=== PATIENT | male | born 1985 | race Caucasian/White ===

== ENCOUNTER 2025-02-21 09:05 | Emergency (ER) | payer SELFPAY ==
[~2025-02-21] VITALS: Ht 170.2 cm; Wt 83.9 kg
[2025-02-21 09:59] LABS: IMMATURE GRANULOCYTE ABSOLUTE 0.05 K/uL (0-1); NUCLEATED RED BLOOD CELLS 0.0 % (0.0-0.19); PLATELET COUNT (AUTO) 379 K/uL (130-400); RED BLOOD CELL COUNT(AUTO) 4.68 MIL/uL (4.50-6.20); RED CELL DISTRIBUTION WIDTH 12.8 % (11.0-15.5); WHITE BLOOD COUNT (AUTO) 11.8 K/uL (4.8-10.8)
--- NOTE | 2025-02-21 10:01 | EKG ---
[facility] Test Date: 2025-02-21 Test Time: 09:57:03 Pat Name: ERIC SANCHEZ Department: ED Room: Gender: [employer] Labou[employer]: [id number] : 1985 Requested By: SARAH ROSENTHAL Order Number: [id number] Reading MD: Janelle Carbajal Measurements Intervals [place] Rate: 70 P: 34 OR: 155 QRS: 23 QRSD: 90 T: 31 QT: 366 QTc: 397 Interpretive Statements Sinus rhythm No previous ECG available for comparison Electronically Signed On 02-21-2025 11:38:28 CDT by Janelle Carbajal Please click the below link to view image of tracing.
[2025-02-21 10:07] LABS: CREATININE 1.1 mg/dL (0.5-1.3); GLOMERULAR FILTR. RATE CALC 86.0 mL/min (>90); GLUCOSE,RANDOM 102.0 mg/dL (70-105); SODIUM SERUM 139.0 mmol/L (136-145); UREA NITROGEN, BLOOD 15.0 mg/dL (7-18)
[2025-02-21 10:09] LABS: INR 0.99 (0.85-1.15)
--- NOTE | 2025-02-21 11:02 | HMCIMG ---
US ARTERIAL BILAT LOW EXT DUPL HISTORY: LLE pain TECHNIQUE: Duplex Doppler evaluation of the arteries of both legs performed. FINDINGS: Grayscale images revealed intimal calcifications throughout both lower extremities. Peak systolic velocities and wave patterns were documented, as follows: RIGHT LEG Common femoral: 147 cm/s Triphasic Superficial femoral prox: 129 cm/s Triphasic Superficial femoral mid: 119 cm/s Triphasic Superficial femoral distal: 86 cm/s Triphasic Popliteal: 68 cm/s biphasic Posterior tibial: 66 cm/s biphasic Dorsalis pedis: 43 cm/s biphasic LEFT LEG Common femoral: 144 cm/s Triphasic Superficial femoral prox: 118 cm/s Triphasic Superficial femoral mid: 109 cm/s Triphasic Superficial femoral distal: 78 cm/s biphasic Popliteal: 53 cm/s biphasic Posterior tibial: 60 cm/s biphasic Dorsalis pedis: 99 cm/s biphasic IMPRESSION: Normal bilateral lower extremity arterial Doppler.
[2025-02-21 11:09] VITALS: BP 137/88; PULSE 80; RESP 20; TEMP 98; O2SAT 99
[2025-02-21] MEDS ORDERED: NAPR-1196 PO (11:50)
--- NOTE | 2025-02-21 11:50 | ERN ---
ED Note History of Present Illness Stated Complaint: LT FOOT PAIN Chief Complaint: FOOT INJURY/PAIN Time Seen by MD: 09:32 Dictation: 40-year-old male with left foot pain over the past week worsening this morning was [facility] and sent for further evaluation patient reports that he feels the foot cold and also sprained it a few days ago. Patient also rubbed icy hot medicine on it Allergies: Coded Allergies: No Known Allergies (Unverified Allergy, Unknown, 02/21/25) Past Medical History Past Medical History: Asthma Surgical History: Other Review of System Dictation Constitutional: Negative for fever,chills, and weight loss Eyes: Negative for injury, pain,redness, and discharge ENT: Negative for injury,pain or swelling Cardiovascular: Negative for chest pain, palpitations, and edema Respiratory: Negative for shortness of breath, cough, and wheezing, Abdomen/GI: Negative for abdominal pain, nausea, vomiting, diarrhea, and constipation Back: Negative for injury and pain : Negative for injury, bleeding and discharge MS/Extremity: Per HPI Skin: Negative for rash, and discoloration Neuro: Negative for headache, weakness, numbness, tingling, and seizure Psych: Negative for suicide ideation, homicidal ideation, and hallucinations Initial Vital Sign VS Vital Signs Date Time Temp Pulse Resp B/P (MAP) Pulse Ox O2 Delivery O2 Flow Rate FiO2 02/21/25 09:08 98.1 84 20 148/98 99 Room Air 02/21/25 11:09 0 21 Physical Exam Dictation General: awake, alert, NAD Head/Face: Normocephalic, atraumatic Eyes: PERRL, EOMI, vision at baseline ENT: oral cavity clear, TMs clear, no signs of infection Neck: Trachea midline, supple, no nuchal rigidity Cardiovascular: RRR, normal S1/S2, No MRGs, no JVD Respiratory: CTAB, no respiratory distress, No rales or wheezes Abdomen: Soft, non-tender, non-distended, normal bowel sounds, no guarding or rebound. Skin: Warm, dry, normal turgor, no rash MS/Extremity: Pulses equal, no cyanosis, neurovascular intact, FROM, mild ten derness to left ankle no deformity Neuro: COAx4, GCS 15, strength 5/5, CN 2-12 intact, normal cerebellar exam, normal gait, Psych: Normal behavior, mood, and affect normal Results (Laboratory/Radiology) Laboratory/Radiology Laboratory Tests Test 02/21/25 09:53 White Blood Count 11.8 K/uL (4.8-10.8) H Red Blood Count 4.68 MIL/uL (4.50-6.20) Hemoglobin 14.5 g/dL (14.0-18.0) Hematocrit 42.6 % (42-54) Mean Corpuscular Volume 91.0 fL (79-99) Mean Corpuscular Hemoglobin 31.0 pg (27.0-33.0) Mean Corpuscular Hemoglobin Concent 34.0 g/dL (32.0-36.0) Red Cell Distribution Width 12.8 % (11.0-15.5) Platelet Count 379 K/uL (130-400) Mean Platelet Volume 9.2 fL (7.5-10.5) Immature Granulocyte % (Auto) 0.4 % (0-1) Neutrophils (%) (Auto) 65.1 % (40.0-77.0) Lymphocytes (%) (Auto) 26.9 % (21.0-51.0) Monocytes (%) (Auto) 5.7 % (3.0-13.0) Eosinophils (%) (Auto) 1.5 % (0.0-8.0) Basophils (%) (Auto) 0.4 % (0.0-5.0) Neutrophils # (Auto) 7.7 K/uL (1.8-7.7) Lymphocytes # (Auto) 3.2 K/uL (1.0-4.8) Monocytes # (Auto) 0.7 K/uL (0.1-1.0) Eosinophils # (Auto) 0.18 K/uL (0.00-0.70) Basophils # (Auto) 0.05 K/uL (0.00-0.20) Absolute Immature Granulocyte (auto 0.05 K/uL (0-1) Nucleated Red Blood Cells 0.0 % (0.0-0.19) Prothrombin Time 10.5 SEC (9.6-11.6) Prothromb Time International Ratio 0.99 (0.85-1.15) Activated Partial Thromboplast Time 23.2 SEC (26.3-35.5) L Sodium Level 139 mmol/L (136-145) Potassium Level 3.9 mmol/L (3.5-5.1) Chloride Level 101 mmol/L (101-111) Carbon Dioxide Level 29 mmol/L (21-32) Blood Urea Nitrogen 15 mg/dL (7-18) Creatinine 1.1 mg/dL (0.5-1.3) Glomerular Filtration Rate Calc 86 mL/min (>90) Random Glucose 102 mg/dL (70-105) Total Calcium 8.9 mg/dL (8.5-10.1) Troponin I High Sensitivity < 4 ng/L (4-75) L Labs Reviewed?: Yes ED Course ED Course Orders Procedure Category Date Status Time Us Arterial Bilat Low US 02/21/25 Resulted Ext Dupl 09:44 12 Lead Ekg Tracing- EKG 02/21/25 Resulted Technical 09:44 Cbc With Differential LAB 02/21/25 Complete 09:44 Basic Metabolic Panel LAB 02/21/25 Complete 09:44 Pt And Ptt LAB 02/21/25 Complete 09:44 Troponin I High LAB 02/21/25 Complete Sensitivity 09:44 Ankle Comp 3vws Lt RAD 02/21/25 Taken 10:59 Ketorolac PHA 02/21/25 Complete Tromethamine 30mg/Ml 11:00 Current Medications Medications (Trade) Dose Ordered Sig/Bert Route PRN Reason Start Time Stop Time Status Last Admin Dose Admin Ketorolac Tromethamine (toRADol) 30 mg ONCE ONCE IM 02/21/25 11:00 02/21/25 11:01 DC 02/21/25 11:20 Vital Signs Date Time Temp Pulse Resp B/P (MAP) Pulse Ox O2 Delivery O2 Flow Rate FiO2 02/21/25 11:09 98.1 80 20 137/88 99 Room Air* 0 21 02/21/25 09:08 98.1 84 20 148/98 99 Room Air Medical Decision Making MDM MDM: Differential diagnosis: Rationale: Tests considered and ordered secondary to shared decision making include: Previous outside records reviewed: Old ER visits. Risk of complication and/or morbidity or mortality of patient management: None Medications-Per medication reconciliation Need for hospitalization: Patient does not meet criteria for hospitalization. Need for emergency major/minor surgery: No There are no social concerns with this patient. Prescription drug management Prescriptions will include symptomatic care Patient's prior external medical records from other ER visits were reviewed by me as indicated. Prior testing and results from previous visits were reviewed. Prior tests were taken into account with medical decision making and resource utilization, independent historian/historians were used to obtain complete m edical history. I independently interpreted the test that were performed, results were reviewed by me and considered findings on radiology if ordered. Medical management and examination interpretation discussions were had by me with other qualified healthcare professionals as indicated for the patient's care. 40-year-old male with left ankle pain stable exam x-ray and arterial Doppler is normal no signs of DVT, patient has left knee sprain prescriptions given. DX & DISP Disposition: Discharge Departure Impression: Primary Impression: Left ankle sprain Condition: Stable Scripts Naproxen (Naproxen) 250 Mg Tablet 250 MG PO BID for 5 Days, #10 TAB Prov: SARAH ROSENTHAL MD 02/21/25 Referrals: SELF,REFERRAL (PCP) SARAH ROSENTHAL MD Feb 21, 2025 11:50
--- NOTE | 2025-02-21 12:16 | HMCIMG ---
EXAM: CR right ankle, 3 View. CLINICAL HISTORY: injury COMPARISON: None provided. FINDINGS: BONES: No acute fracture or aggressive appearing osseous lesion. JOINTS: The joint spaces appear within normal limits. No dislocation. No radiographic evidence of a joint effusion. SOFT TISSUES: The soft tissues are unremarkable. IMPRESSION: No acute osseous abnormality. /[place]
== END 2025-02-21 11:51 | disposition home or self-care (01) ==
LOC: EDH 09:05
DX: S93.402A Sprain of unspecified ligament of left ankle, initial encounter (principal); J45.909 Unspecified asthma, uncomplicated
CPT/HCPCS: 99285; 93925; 84484; 80048; 85025; 85610; 85730; 36415; 73610; 96372; 93005; J1885

== ENCOUNTER 2025-02-28 11:40 | Emergency (ER) | payer SELFPAY ==
[~2025-02-28] VITALS: Ht 170.2 cm; Wt 83.0 kg
[~2025-02-28 11:40] MED LIST: NAPR-1196 PO
--- NOTE | 2025-02-28 12:12 | ERN ---
ED Note History of Present Illness Stated Complaint: FOOT Chief Complaint: FOOT INJURY/PAIN Time Seen by MD: 11:54 Dictation: PATIENT IS A 40-YEAR-OLD MALE HERE WITH HIS WITH COMPLAINTS OF LEFT FOOT PAIN HE HAS HAD ON AND OFF FOR THE LAST 2-3 WEEKS. HE STATES HE HAD A MISSTEP AND TWISTED IT SEVERAL DAYS AGO WAS SEEN AT [facility] ON 02/21/2025. AT THAT TIME HE HAD X-RAY EVALUATION OF THE ANKLE, ULTRASOUND WAS DONE BECAUSE HE STATES HIS FOOT HE HAD BEEN TURNING PURPLE WHEN HE PUTS IT DOWN. ULTRASOUND DEMONSTRATED ARTERIAL FLOW FROM INGUINAL AREA TO FOOT. X-RAY SHOWED NO FRACTURES. PATIENT STATES HE WAS GOING TO SEE HIS DOCTOR AT THE [facility], IS PENDING AN MRI HOWEVER HE HAS NOT BEEN REFERRED TO ORTHOPEDICS. 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 NO FEVER NO CHILLS NO NAUSEA VOMITING NO. NO DRAINAGE. HE HAS A AN APPOINTMENT WITH THE SURVEILLANCE SENSOR OFFICER, IN [place] ON MONDAY. Allergies: Coded Allergies: No Known Allergies (Unverified Allergy, Unknown, 02/21/25) Home Meds Active Scripts Naproxen (Naproxen) 250 Mg Tablet, 250 MG PO BID for 5 Days, #10 TAB Prov:SARAH ROSENTHAL MD 02/21/25 Past Medical History Past Medical History: Asthma Surgical History: Tonsillectomy Surgical History Other: SEPTOPLASMY RN Note Reviewed/Agreed w/PFSH: Yes Review of System Dictation CONSTITUTIONAL: NEGATIVE EXCEPT FOR HPI HEAD/FACE: NEGATIVE EXCEPT FOR HPI LEFT FACIAL CYST EENT: NEGATIVE EXCEPT FOR HPI RESPIRATORY: NEGATIVE EXCEPT FOR HPI GASTROINTESTINAL/ABDOMINAL: NEGATIVE EXCEPT FOR HPI GENITOURINARY: NEGATIVE EXCEPT FOR HPI MUSCULOSKELETAL: NEGATIVE EXCEPT FOR HPI LEFT FOOT AND ANKLE PAIN. INTEGUMENTARY: NEGATIVE EXCEPT FOR HPI NEUROLOGICAL/PSYCH: NEGATIVE EXCEPT FOR HPI HEMATOLOGIC/LYMPHATIC: NEGATIVE EXCEPT FOR HPI ALL SYSTEMS NEGATIVE, EXCEPT NOTED ABOVE. 13 POINT REVIEW OF SYSTEMS ASSESSED AND ALL NEGATIVE EXCEPT FOR ABOVE. Initial Vital Sign VS Vital Signs Date Time Temp Pulse Resp B/P (MAP) Pulse Ox O2 Delivery O2 Flow Rate FiO2 02/28/25 11:41 98.2 83 20 136/84 99 Room Air 0 Physical Exam Dictation VITAL SIGNS REVIEWED GENERAL APPEARANCE: ALERT, ORIENTED X 3, NO ACUTE DISTRESS, WELL DEVELOPED, NOURISHED. HEAD AND FACE: NON-TRAUMATIC. TENDER AREA TO LEFT LATERAL FACE ANTERIOR TO EAR. AREA FIRM TO TOUCH THERE WAS NO FLUCTUANCE THERE WAS NO DRAINAGE NO ERYTHEMA EYES: PERRL, PINK CONJUNCTIVAS, EYELID NO TRAUMA, ANTERIOR CHAMBER WITH ARCUS SENILIS. EARS: PINNAS INTACT AND NO SIGNS OF TRAUMA OR ERYTHEMA EAR CANALS CLEAR AND NO DISCHARGE TM NO ERYTHEMA NOSE: NO DISCHARGE, NO BLEEDING. OROPHARYNX: MOUTH NORMAL, TONGUE PINK, PHARYNX CLEAR,NO ERYTHEMA, TONSILS NO EXUDATES, NO ABSCESSES NOTED, MUCOUS MEMBRANE MOIST NECK: SUPPLE, NON-TENDER, NO THYROMEGALY, NO MASSES, NO JVD, NO BRUITS BREAST:DEFERRED CHEST:NO TENDERNESS, NO CREPITUS, NO PARADOXICAL MOVEMENT, NO RETRACTIONS LUNGS:CLEAR, WELL-VENTILATED, SYMMETRIC, NO RALES, NO WHEEZING, NO RHONCHI, NO STRIDOR, GOOD BREATH SOUNDS BILATERALLY HEART: REGULAR RATE, REGULAR RHYTHM, NO MURMUR, NO GALLOPS VASCULAR: NO PERIPHERAL EDEMA, ABDOMEN: SOFT, POSITIVE BOWEL SOUNDS, NONDISTENDED, NO GUARDING, NONTENDER, NO REBOUND, NO MASSES NO HEPATOMEGALY, NO SPLENOMEGALY, NO BOUDREAUX'S SIGN, NO HERNIAS. RECTAL: DEFERRED GENITAL: DEFERRED NEUROLOGICAL: NORMAL SPEECH, MOTOR FUNCTION INTACT, SENSORY FUNCTION INTACT MUSCULOSKELETAL: NECK NONTENDER, FULL RANGE OF MOTION, BACK NONTENDER, FULL RANGE OF MOTION, EXTREMITIES: NEUROVASCULAR CMS INTACT TO LEFT FOOT. FOOT IS WARM TO TOUCH. MILD ANKLE TENDERNESS WITH RANGE OF MOTION. SKIN: COLOR PINK, DRY, NO TURGOR, NO RASH, NO LACERATIONS, NO ABRASIONS, NO CONTUSIONS. LYMPHATIC: DEFERRED Results (Laboratory/Radiology) Labs Reviewed?: Yes ED Course ED Course Orders Procedure Category Date Status Time Ibuprofen 800 Mg Tab PHA 02/28/25 In Process (Motrin) 12:30 Current Medications Medications (Trade) Dose Ordered Sig/Bert Route PRN Reason Start Time Stop Time Status Last Admin Dose Admin Ibuprofen (moTRIN) 800 mg ONCE ONCE PO 02/28/25 12:30 02/28/25 12:31 Vital Signs Date Time Temp Pulse Resp B/P (MAP) Pulse Ox O2 Delivery O2 Flow Rate FiO2 02/28/25 11:41 98.2 83 20 136/84 99 Room Air 0 1210/PATIENT HAD A INJURY TO HIS LUMBAR BACK WITH LEFT LEG SCIATICA HE HAD SEVERAL YEARS AGO THAT HAS ALREADY BEEN TREATED. I ADVISED HIM NO LABS OR IMAGING INDICATED AT THIS TIME. TO CONTINUE HIS MEDICATIONS FROM THE DOCTOR AT THE [facility] AND TO SEE THE SURVEILLANCE SENSOR OFFICER ON MONDAY. FOR THE CYST TO HIS FACE. CONTINUE WITH HIS CRUTCHES THAT WERE ISSUED TO HIM ON 02/21 AND NO WEIGHT- BEARING UNTIL CLEARED BY ORTHOPEDIC SURGERY. WE WILL REFER HIM TO DR. VERA TOOK Medical Decision Making MDM MEDICAL DISCHARGE MAKING BASED ON HPI AND REVIEW OF MEDICAL RECORDS. PATIENT HAD X-RAY AND ARTERIAL ULTRASOUND ON 02/21 X-RAY NEGATIVE FOR FRACTURE DISLOCATION ARTERIAL ULTRASOUND DEMONSTRATED BIPHASIC AND TRIPHASIC FLOW FROM INGUINAL AREA TO FOOT. PATIENT WILL BE REFERRED BACK TO ORTHOPEDIC SURGERY AND WE WILL BE GIVEN THE NAME OF DR. JODY ANN TOLD TO KEEP HIS APPOINTMENT WITH HIS SURVEILLANCE SENSOR OFFICER ON MONDAY DX & DISP Disposition: Discharge Departure Impression: Primary Impression: Left ankle sprain Additional Impression: Cyst of face Condition: Stable Additional Instructions: FOLLOW-UP WITH PRIMARY CARE PROVIDER IN 1 TO 2 DAYS. TAKE MEDICATIONS DIRECTED HERE IN THE EMERGENCY ROOM. OKAY TO CONTINUE HOME MEDICATIONS UNLESS OTHERWISE DISCUSSED DURING YOUR VISIT IN THE EMERGENCY ROOM TODAY. RETURN TO YOUR NEAREST EMERGENCY ROOM IF SYMPTOMS WORSEN OR IF THERE IS NO IMPROVEMENT. CALL 911 IF YOU NEED IMMEDIATE ASSISTANCE. TAKE TYLENOL OR MOTRIN [id number] NEEDED AND IF NO CONTRAINDICATIONS ARE PRESENT. INCREASE ORAL HYDRATION. A WOUND CULTURE OR URINE CULTURE WAS ORDERED HERE IN THE EMERGENCY ROOM DEPARTMENT PLEASE FOLLOW-UP WITH PRIMARY CARE PROVIDER AND ADVISE THEM TO GET REPEAT PORTS FROM OUR FACILITY. IF YOU HAD ANY BERTO WRAP/SPLINTS THAT WERE APPLIED HERE, PLEASE DO NOT REMOVE THEM UNTIL YOU SEE YOUR PRIMARY CARE OR SPECIALTY. CONTINUE ALL YOUR PAIN MEDS AND TREATMENTS FROM YOUR DOCTOR AT [facility]. KEEP YOUR APPOINTMENT WITH DERMATOLOGY ON MONDAY FOR YOUR FACIAL CYST CONTINUE WITH CRUTCHES AND NO WEIGHT-BEARING IN YOUR LEFT LEG UNTIL CLEARED BY ORTHOPEDICS, CALL FOR AN APPOINTMENT TODAY. KEEP THE FOOT ELEVATED Referrals: SELF,REFERRAL (PCP) JODY ANN DO Time of Disposition: 12:17 I have reviewed the case, and I agree with, Diagnosis and Plan ANICETO MONTOYA [employer] WORKER Feb 28, 2025 12:12
[2025-02-28 12:25] VITALS: BP 136/64; PULSE 85; RESP 20; TEMP 98.3; O2SAT 97
== END 2025-02-28 12:41 | disposition home or self-care (01) ==
LOC: EDH 11:40
DX: S93.402A Sprain of unspecified ligament of left ankle, initial encounter (principal); L72.9 Follicular cyst of the skin and subcutaneous tissue, unspecified; J45.909 Unspecified asthma, uncomplicated; Z90.89 Acquired absence of other organs; X50.1XXA Overexertion from prolonged static or awkward postures, initial encounter; Y93.89 Activity, other specified; Y92.89 Other specified places as the place of occurrence of the external cause; Y99.8 Other external cause status
CPT/HCPCS: 99282